=== PATIENT | female | born 1970 | race Caucasian/White ===

== ENCOUNTER → 2018-03-18 | Day surgery (SDC) | payer BC ==
[~2018-03-18] MED LIST: ACETAMINOPHEN 1,000 MG/100 ML BTL IV ONE; FAMOTIDINE 20MG TABLET PO ONE; FENTANYL PF 100MCG/2ML VIAL IV ONE; LIDOCAINE 1% W/EPI 1:200,000 MPF 30ML SQ ONE; LIDOCAINE 2% MDV (20MG/ML) 20ML VIAL IV ONE; MECLIZINE 25 MG TABLET PO ONE; METOCLOPRAMIDE 10 MG TABLET PO ONE; MIDAZOLAM HCL 2MG/2ML VIAL IV ONE; ONDANSETRON HCL IV 4 MG/2 ML VIAL IVP ONE; PROPOFOL 10 MG/ML VIAL IV ONE; SCOPOLAMINE 1 PATCH TDSY TD ONE
--- NOTE | 2018-03-19 12:40 | Operative Note ---
DATE OF SURGERY: 03/18/2018 Surgeon: Jorje Moreland DO PREOPERATIVE DIAGNOSIS: Right trigger thumb. POSTOPERATIVE DIAGNOSIS: Right trigger thumb. OPERATION: Tenotomy A1 todd right thumb. DESCRIPTION OF PROCEDURE: This 47-year-old female was taken to the operating room and placed in the supine position on the operating room table. Assisted local anesthesia was used and 1% Xylocaine plain was used as a local anesthetic after prepping the right upper extremity with Hibiclens and draping it in the usual sterile fashion. We used 1% Xylocaine plain as a local anesthetic. A transverse incision was subsequently made in the flexor crease of the MCP joint. Dissection was carried down through the skin and subcutaneous tissue. Hemostasis obtained with electrocautery. The neurovascular bundles were safely retracted to expose the proximal edge of the A1 todd, which was incised from its proximal to its distal margin under direct vision. The tendon of the flexor pollicis longus tendon appeared to be entirely normal other than some mild thickening of the tendon at the proximal edge of the A1 todd. Tendon passed through the todd area after decompression and the wound was irrigated and closed with interrupted 6-0 nylon suture. Sterile dressings were applied and the patient taken to the recovery room in satisfactory condition. GROSS PATHOLOGY: This patient had mild thickening of the flexor pollicis longus tendon to the right thumb which was impinging upon the A1 todd. CC: ROE KRISHNA MD, FACP ESTEFANIA
== END | disposition home or self-care (01) ==
LOC: SUR 10:43
PROVIDERS: ATTEND Orthopaedic Surgery
DX: M65.311 Trigger thumb, right thumb (principal)
CPT/HCPCS: 26055; 01810; J2405; J3010

== ENCOUNTER 2019-09-08 07:40 | Day surgery (SDC) | payer BC ==
[2019-09-08] MEDS ORDERED: LIDOCAINE 2% MDV (20MG/ML) 20ML VIAL IV ONE (07:41)
[2019-09-08] MEDS ORDERED: PROPOFOL 10 MG/ML VIAL IV ONE (07:41)
--- NOTE | 2019-09-08 14:50 | Operative Note ---
OPERATION: 1. ESOPHAGOGASTRODUODENOSCOPY with biopsy. 2. COLONOSCOPY. PREOPERATIVE DIAGNOSIS: Generalized abdominal pain. POSTOPERATIVE DIAGNOSES: 1. Normal upper endoscopy, rule out occult H pylori infection. 2. Fair-quality colonic preparation. 3. Hemorrhoids. PROCEDURE: After informed consent was obtained from the patient, she was placed in the left lateral decubitus position in the endoscopy suite, sedated and monitored by the department of anesthesia. A well-lubricated VIN420 gastroscope was placed in the posterior oropharynx under direct visualization and passed to the proximal esophagus. The endoscope was advanced through the proximal, mid, and distal esophagus. The GE junction, esophagus, gastric body, antrum, pylorus, duodenal bulb and sweep were all unremarkable endoscopically. No inflammation, polyps, mass lesions, or erosions were seen. J-turn views of the proximal stomach were unrevealing. The endoscope was then straightened. Random gastric biopsies were obtained to rule out occult H pylori infection. The stomach was deflated. The endoscope was removed through the course of the proximal stomach and esophagus. No new findings or abnormalities were identified. Digital rectal exam was unrevealing. A well-lubricated DTO595 colonoscope was inserted into the rectum and advanced to the cecum. Preparation quality was fair. Lavaging was performed throughout the length of the colon. Semi- particulate matter was noted and obscured some of the view of the colonic mucosa. Despite that, I saw no obvious lesions throughout the terminal ileum, cecum, ascending colon, transverse colon, descending colon, sigmoid colon, and rectum. J-turn views did reveal some prominent hemorrhoids. The endoscope was straightened, the rectal ampulla deflated, and the endoscope was removed. RECOMMENDATIONS: We will await the results of pathology of the biopsies of the stomach. In addition, at this point, given the preparation quality, I question whether the patient could have some bowel irregularity which could be contributing to her abdominal symptoms. Particularly, she may be constipated. I would suggest she use MiraLax daily to see if this provides her with any improvement of her regularity and resolution of her abdominal symptoms. If her pain persists, I would suggest some small bowel imaging be performed. Her symptoms at this point do not seem to have a biliary quality but should her symptoms localize to the right upper quadrant, perhaps investigation of a biliary dysfunction would be worthwhile. She should undergo repeat colonoscopy in 3 years based on the preparation quality. As always, thank you for allowing me to participate in the healthcare of your patients. ESTEFANIA
== END 2019-09-08 09:20 | disposition home or self-care (01) ==
LOC: HOP 07:40
PROVIDERS: ATTEND Internal Medicine Gastroenterology
DX: R10.84 Generalized abdominal pain (principal); K64.8 Other hemorrhoids; K29.50 Unspecified chronic gastritis without bleeding; B96.81 Helicobacter pylori [H. pylori] as the cause of diseases classified elsewhere

== ENCOUNTER 2019-11-07 08:33 | Day surgery (SDC) | payer BC ==
[~2019-11-07 08:33] MED LIST changes: -ACETAMINOPHEN 1,000 MG/100 ML BTL IV ONE; +ACETAMINOPHEN 1,000 MG/100 ML BTL IVPB ONE; -FENTANYL PF 100MCG/2ML VIAL IV ONE; -LIDOCAINE 1% W/EPI 1:200,000 MPF 30ML SQ ONE; -LIDOCAINE 2% MDV (20MG/ML) 20ML VIAL IV ONE; -MECLIZINE 25 MG TABLET PO ONE; -MIDAZOLAM HCL 2MG/2ML VIAL IV ONE; -ONDANSETRON HCL IV 4 MG/2 ML VIAL IVP ONE; -PROPOFOL 10 MG/ML VIAL IV ONE
[2019-11-07] MEDS ORDERED: SEVOFLURANE 250 ML INH ONE (08:34)
[2019-11-07] MEDS ORDERED: NEOSTIGMINE 1 MG/1 ML,10ML VIAL IV ONE (08:34)
[2019-11-07] MEDS ORDERED: SUCCINYLCHOLINE 20 MG/ML 10ML IVP ONE (08:34)
[2019-11-07] MEDS ORDERED: LIDOCAINE 2% MDV (20MG/ML) 20ML VIAL IV ONE (08:34)
[2019-11-07] MEDS ORDERED: GLYCOPYRROLATE 0.2 MG/ML ML IV ONE (08:34)
[2019-11-07] MEDS ORDERED: PROPOFOL 10 MG/ML VIAL IV ONE (08:34)
[2019-11-07] MEDS ORDERED: KETOROLAC 30 MG/ML VIAL IVP ONE (08:34)
[2019-11-07] MEDS ORDERED: FENTANYL PF 100MCG/2ML VIAL IV ONE (08:34)
[2019-11-07] MEDS ORDERED: ROCURONIUM BROMIDE 50MG/5ML VIAL IV ONE (08:34)
[2019-11-07] MEDS ORDERED: DEXAMETHASONE 4 MG/ML 1ML VIAL IVP ONE (08:34)
[2019-11-07] MEDS ORDERED: ONDANSETRON HCL IV 4 MG/2 ML VIAL IVP ONE (08:34)
[2019-11-07] MEDS ORDERED: MIDAZOLAM HCL 2MG/2ML VIAL IV ONE (08:34)
[2019-11-07] MEDS ORDERED: RINGERS SOLUTION,LACTATED 1,000 ML IV ONE (09:02)
[2019-11-07] MEDS ORDERED: BUPIVACAINE 0.25% W/EPI MPF 30ML VIAL SQ ONE (10:54)
[2019-11-07] MEDS: MORPHINE SULFATE (PACU ONLY) 4 MG/ML VIAL IVP PRN ×2 (11:22→11:29)
[2019-11-07] MEDS ORDERED: HYDROCODONE/APAP 5/325MG TABLET PO ONE (11:59)
--- NOTE | 2019-11-08 06:30 | Operative Note ---
DATE OF SURGERY: 11/07/2019 SURGEON: Justice Escobedo DO PREOPERATIVE DIAGNOSIS: Symptomatic biliary dyskinesia. POSTOPERATIVE DIAGNOSIS: Symptomatic biliary dyskinesia. OPERATION: Laparoscopic cholecystectomy. INDICATION: The patient is a 49-year-old female who is having some ongoing right subcostal postprandial pain. Ultrasound was normal. HIDA scan did show impaired ejection fraction with reproduced pain with Kinevac injection. We did discuss cholecystectomy versus medical management. She desired surgical intervention. Risks include but are not limited to bleeding, infection, ductal injury, possible conversion to open, postoperative bile leak, nonresolution of her symptoms. She understood this fully. PROCEDURE: Thereafter, consent was signed and questions answered. She was taken to the operating room and placed in a supine position. General anesthesia was administered per the department of anesthesia. The patient's abdomen was prepped and draped in the usual sterile fashion. The infraumbilical region was anesthetized with a total of 5 mL of 0.25% Sensorcaine with epinephrine. A 2 cm infraumbilical incision was made. This was carried down to the anterior rectus fascia. This was incised. Melody clamps were placed on the fascial edges and brought up into the wound. Stay sutures of 0 Vicryl were placed. Posterior rectus sheath was identified and incised. The peritoneal cavity was entered bluntly. At this time, a 10 mm blunt Wilfrid port was placed. Adequate pneumoperitoneum was established. Under direct visualization, additional 5 mm epigastric and two 5 mm right subcostal ports were placed. The patient was rotated into reverse Trendelenburg with rotation to left. There were dense adhesions anterior to the gallbladder containing omentum and duodenum. These were brought down with blunt dissection. No thermal source was used near the bowel. The hepatocystic triangle was thoroughly dissected out. There was no aberrant anatomy, no posterior ductal structures. The cystic duct and cystic artery were clearly identified. Each one was doubly clipped and cut in a standard fashion. Gallbladder was taken off the liver bed with MICHAEL Harmonic. This was extracted in the infraumbilical port. Right upper quadrant was rechecked and found to be hemostatic. No bleeding. No bile leaking. No bowel injury noted. The patient was leveled out. The pneumoperitoneum was released. All ports were removed. The fascia was closed with 0 Vicryl in a [id number] fashion. The skin at all ports was closed with 4-0 Vicryl. The patient was taken to the recovery room in stable condition. FINDINGS AT THE TIME OF SURGERY: Chronic cholecystitis. MTDD
== END 2019-11-07 12:35 | disposition home or self-care (01) ==
LOC: SUR 08:33
PROVIDERS: ATTEND Surgery
DX: K81.1 Chronic cholecystitis (principal)
CPT/HCPCS: J0330; J1885; J2270; J2405; J2710; J7120